=== PATIENT | female | born 1985 | race Caucasian/White ===

== ENCOUNTER 2018-05-28 20:57 | Emergency (ER) | payer BC ==
[2018-05-28 21:34] VITALS: BP 105/71; PULSE 64; RESP 20; TEMP 99.1; O2SAT 100
== END 2018-05-28 21:28 | disposition left against medical advice (07) ==
LOC: C.ER 20:57
DX: Z02.89 Encounter for other administrative examinations (principal); R53.1 Weakness
CPT/HCPCS: 82948; LWBS0